=== PATIENT | male | born 1955 | race Caucasian/White ===

== ENCOUNTER → 2021-11-28 | Outpatient (CLI) | payer MEDICARE, OTHER | LOC: M WUC 15:07 | PROVIDERS: ATTEND Student in an Organized Health Care Education/Training Program | DX: S61.205A Unspecified open wound of left ring finger without damage to nail, initial encounter (principal); X58.XXXA Exposure to other specified factors, initial encounter; Y92.9 Unspecified place or not applicable; Y93.9 Activity, unspecified; Y99.9 Unspecified external cause status ==

== ENCOUNTER 2022-04-12 15:27 | Emergency (ER) | payer MEDICARE ==
[~2022-04-12] VITALS: Ht 180.3 cm; Wt 90.1 kg
[2022-04-12] MEDS ORDERED: VENL75CA47 PO (15:48)
[2022-04-12] MEDS ORDERED: MIRT-11 PO (15:48)
[2022-04-12] MEDS ORDERED: ATIV1TAB10 PO (15:48)
[2022-04-12] MEDS ORDERED: NICOTINE 21MG/24HR 1 EA TRANSDERMAL TD ONE (16:30)
[2022-04-12 16:35] LABS: HEMATOCRIT 49.7 % (42.0-52.0); HEMOGLOBIN 17.4 g/dl (13.5-17.5); MEAN CORPUSCULAR HEMOGLOBIN 31.8 pg (27.0-33.0); MEAN CORPUSCULAR VOLUME 90.7 fl (80.0-96.0); PLATELET COUNT, AUTOMATED 263 10^3/uL (150-450); RED BLOOD COUNT 5.48 10^6/uL (4.30-6.10); WHITE BLOOD COUNT 7.9 10^3/uL (4.0-10.0)
[2022-04-12 16:56] LABS: ETHYL ALCOHOL (ETHANOL) 0.003 % (0.000-0.010)
[2022-04-12 16:57] LABS: ACETAMINOPHEN LEVEL < 2.0 UG/ML (10.0-20.0)
[2022-04-12 16:58] LABS: ALBUMIN 4.1 G/DL (3.2-5.2); ALKALINE PHOSPHATASE 48 U/L (46-116); ALT/SGPT 27 U/L (7.0-40); AST/SGOT 20 U/L (<34); BILIRUBIN,DIRECT 0.3 MG/DL (<0.4); BILIRUBIN,TOTAL 0.7 MG/DL (0.3-1.2); BLOOD UREA NITROGEN 13 MG/DL (9-23); CALCIUM LEVEL 9.2 MG/DL (8.3-10.6); CARBON DIOXIDE LEVEL 25 MMOL/L (20-31); CHLORIDE LEVEL 107 MMOL/L (98-107); CREATININE FOR GFR 0.87 MG/DL (0.70-1.30); GLOMERULAR FILTRATION RATE > 60.0 (>49); GLUCOSE, FASTING 85 MG/DL (74-106); POTASSIUM SERUM 3.9 MMOL/L (3.5-5.1); SALICYLATE LEVEL < 3.0 MG/DL (<30); SODIUM LEVEL 138 MMOL/L (136-145); TOTAL PROTEIN 7.5 G/DL (5.7-8.2)
[2022-04-12 17:00] LABS: THYROID STIMULATING HORMONE 1.682 uIU/ML (0.55-4.78)
[2022-04-12 17:07] LABS: AMPHETAMINES LEVEL URINE NEGATIVE (NEGATIVE); BARBITURATES URINE NEGATIVE (NEGATIVE); BENZODIAZEPINES URINE NEGATIVE (NEGATIVE); CANNABINOIDS URINE NEGATIVE (NEGATIVE); COCAINE METABOLITE URINE NEGATIVE (NEGATIVE); METHADONE URINE NEGATIVE (NEGATIVE); OPIATES URINE NEGATIVE (NEGATIVE); PHENCYCLIDINE URINE NEGATIVE (NEGATIVE); RSV AMPLIFICATION NEGATIVE (NEGATIVE)
[2022-04-12] MEDS ORDERED: LORazepam 0.5 MG TAB PO STA (17:28)
[2022-04-12] MEDS ORDERED: HOME MED LIST COMPLETE! XX SCH (18:40)
[2022-04-13] MEDS ORDERED: LORazepam 0.5 MG TAB PO ONE (04:50)
[2022-04-13] MEDS ORDERED: VENLAFAXINE **XR** 75MG CAPSULE PO SCH (09:00)
[2022-04-13 13:43] VITALS: BP 145/87
[2022-04-13] MEDS ORDERED: MIRTAZAPINE 15 MG TAB PO SCH (21:00)
== END 2022-04-13 14:05 ==
LOC: M ED 15:27
DX: R45.851 Suicidal ideations (principal); K21.9 Gastro-esophageal reflux disease without esophagitis; K74.60 Unspecified cirrhosis of liver; F17.200 Nicotine dependence, unspecified, uncomplicated

== ENCOUNTER 2022-04-23 15:01 | Observation (INO) | payer MEDICARE ==
[~2022-04-23] VITALS: Ht 180.3 cm; Wt 85.2 kg
[~2022-04-23 15:01] MED LIST: ATIV1TAB10 PO; MIRT-11 PO; VENL75CA47 PO
[2022-04-23 16:18] LABS: HEMATOCRIT 47.3 % (42.0-52.0); HEMOGLOBIN 16.2 g/dl (13.5-17.5); MEAN CORPUSCULAR HEMOGLOBIN 30.9 pg (27.0-33.0); MEAN CORPUSCULAR HGB CONC 34.2 g/dl (32.0-36.5); MEAN CORPUSCULAR VOLUME 90.3 fl (80.0-96.0); PLATELET COUNT, AUTOMATED 176 10^3/uL (150-450); RED BLOOD COUNT 5.24 10^6/uL (4.30-6.10); WHITE BLOOD COUNT 5.2 10^3/uL (4.0-10.0)
[2022-04-23 16:40] LABS: ETHYL ALCOHOL (ETHANOL) 0.164 % (0.000-0.010)
[2022-04-23 16:42] LABS: ACETAMINOPHEN LEVEL < 2.0 UG/ML (10.0-20.0); ALBUMIN 3.7 G/DL (3.2-5.2); ALKALINE PHOSPHATASE 51 U/L (46-116); ALT/SGPT 103 U/L (7.0-40); AST/SGOT 64 U/L (<34); BILIRUBIN,DIRECT 0.2 MG/DL (<0.4); BILIRUBIN,TOTAL 0.4 MG/DL (0.3-1.2); BLOOD UREA NITROGEN 11 MG/DL (9-23); CALCIUM LEVEL 8.3 MG/DL (8.3-10.6); CARBON DIOXIDE LEVEL 22 MMOL/L (20-31); CHLORIDE LEVEL 103 MMOL/L (98-107); CREATININE FOR GFR 0.76 MG/DL (0.70-1.30); GLOMERULAR FILTRATION RATE > 60.0 (>49); GLUCOSE, FASTING 106 MG/DL (74-106); POTASSIUM SERUM 3.8 MMOL/L (3.5-5.1); SALICYLATE LEVEL < 3.0 MG/DL (<30); SODIUM LEVEL 136 MMOL/L (136-145); TOTAL PROTEIN 6.7 G/DL (5.7-8.2)
[2022-04-23 16:55] LABS: RSV AMPLIFICATION NEGATIVE (NEGATIVE)
[2022-04-24 00:55] LABS: APPEARANCE, URINE MANUAL CLEAR (CLEAR); COLOR, URINE MANUAL YELLOW (YELLOW)
[2022-04-24 00:56] LABS: BILIRUBIN, URINE MANUAL NEGATIVE (NEGATIVE); BLOOD URINE MANUAL NEGATIVE (NEGATIVE); GLUCOSE, URINE (UA) MANUAL NEGATIVE (NEGATIVE); KETONE, URINE MANUAL NEGATIVE (NEGATIVE); LEUKOCYTE ESTERASE, URINE MAN NEGATIVE (NEGATIVE); NITRITE, URINE MANUAL NEGATIVE (NEGATIVE); PROTEIN, URINE MANUAL NEGATIVE (NEGATIVE); SPECIFIC GRAVITY,URINE MANUAL 1.025 (1.002-1.035); UROBILINOGEN, URINE MANUAL NORMAL (NORMAL)
[2022-04-24] MEDS ORDERED: LORazepam 2 MG TAB PO PRN (09:45)
[2022-04-24] MEDS ORDERED: OXAZEPAM 10MG CAP PO ONE (09:45)
[2022-04-24] MEDS ORDERED: THIAMINE 100 MG TAB PO SCH (09:47)
[2022-04-24] MEDS ORDERED: FOLIC ACID 1MG TAB PO SCH (09:48)
[2022-04-24 10:22] LABS: AMPHETAMINES LEVEL URINE NEGATIVE (NEGATIVE); BARBITURATES URINE NEGATIVE (NEGATIVE); BENZODIAZEPINES URINE NEGATIVE (NEGATIVE); CANNABINOIDS URINE NEGATIVE (NEGATIVE); COCAINE METABOLITE URINE NEGATIVE (NEGATIVE); METHADONE URINE NEGATIVE (NEGATIVE); OPIATES URINE NEGATIVE (NEGATIVE); PHENCYCLIDINE URINE NEGATIVE (NEGATIVE)
[2022-04-24] MEDS ORDERED: HOME MED LIST COMPLETE! XX SCH (11:05)
[2022-04-24 15:59] LABS: PROTHROMBIN TIME 13.4 SECONDS (12.5-14.5)
[2022-04-24 16:18] LABS: HEPATITIS B SURFACE ANTIGEN NEGATIVE (NEGATIVE)
[2022-04-24 16:40] LABS: HEPATITIS B CORE ANTIBODY IGM NEGATIVE (NEGATIVE); HEPATITIS C VIRUS ABY INDEX 0.1 INDEX (<0.8)
[2022-04-24 17:43] LABS: MAGNESIUM LEVEL 2.1 MG/DL (1.8-2.4)
[2022-04-24] MEDS ORDERED: RIVAROXABAN 10MG TAB (XARELTO) PO SCH (18:00)
[2022-04-24 21:10] VITALS: BP 170/100
[2022-04-24 22:00] VITALS: BP 134/79
[2022-04-24 23:17] LABS: BILIRUBIN,DIRECT 0.4 MG/DL (<0.4)
[2022-04-24 23:27] LABS: ALBUMIN 3.8 G/DL (3.2-5.2); BILIRUBIN,TOTAL 0.8 MG/DL (0.3-1.2); TOTAL PROTEIN 7.1 G/DL (5.7-8.2)
[2022-04-25 00:15] VITALS: BP 168/105
[2022-04-25 00:45] VITALS: BP 138/78
[2022-04-25 04:21] VITALS: BP 134/93
[2022-04-25 07:19] LABS: HEMATOCRIT 47.3 % (42.0-52.0); HEMOGLOBIN 16.6 g/dl (13.5-17.5); MEAN CORPUSCULAR HEMOGLOBIN 31.2 pg (27.0-33.0); MEAN CORPUSCULAR HGB CONC 35.1 g/dl (32.0-36.5); MEAN CORPUSCULAR VOLUME 88.9 fl (80.0-96.0); PLATELET COUNT, AUTOMATED 237 10^3/uL (150-450); RED BLOOD COUNT 5.32 10^6/uL (4.30-6.10); WHITE BLOOD COUNT 7.3 10^3/uL (4.0-10.0)
[2022-04-25 07:37] LABS: ALBUMIN 3.8 G/DL (3.2-5.2); ALKALINE PHOSPHATASE 58 U/L (46-116); ALT/SGPT 92 U/L (7.0-40); AST/SGOT 53 U/L (<34); BLOOD UREA NITROGEN 15 MG/DL (9-23); CALCIUM LEVEL 9.3 MG/DL (8.3-10.6); CARBON DIOXIDE LEVEL 27 MMOL/L (20-31); CHLORIDE LEVEL 105 MMOL/L (98-107); CREATININE FOR GFR 0.97 MG/DL (0.70-1.30); GLOMERULAR FILTRATION RATE > 60.0 (>49); GLUCOSE, FASTING 96 MG/DL (74-106); POTASSIUM SERUM 4.3 MMOL/L (3.5-5.1); SODIUM LEVEL 139 MMOL/L (136-145); TOTAL PROTEIN 7.2 G/DL (5.7-8.2)
[2022-04-25 09:00] VITALS: BP 129/83
[2022-04-25] MEDS ORDERED: LORazepam 0.5 MG TAB PO PRN (09:00)
[2022-04-25] MEDS ORDERED: MULTIVITAMINS/MINERALS THERAP 1 TAB PO SCH (09:00)
[2022-04-25 12:00] VITALS: BP 148/98
== END 2022-04-25 16:45 ==
LOC: M ED 15:01 → M ED INP 04-24 14:33 → M PCU 04-24 21:04
PROVIDERS: ADMIT Student in an Organized Health Care Education/Training Program; ATTEND Student in an Organized Health Care Education/Training Program
DX: T42.4X2A Poisoning by benzodiazepines, intentional self-harm, initial encounter (principal); T14.91XA Suicide attempt, initial encounter; Y92.009 Unspecified place in unspecified non-institutional (private) residence as the place of occurrence of the external cause; F32.A Depression, unspecified; R74.01 Elevation of levels of liver transaminase levels; K74.60 Unspecified cirrhosis of liver; U07.1 COVID-19; Z79.899 Other long term (current) drug therapy
CPT/HCPCS: 36415; 70450; 71045; 76700; 80048; 80053; 80076; 80143; 80307; 81002; 82077; 83735; 83930; 84443; 85027; 85610; 86705; 86709; 86803; 87340; 87631; 93005; 93041; 93975; 94760; 99285; G0378

== ENCOUNTER 2022-04-25 15:55 | Inpatient (IN) | payer MEDICARE ==
[~2022-04-25] VITALS: Ht 180.3 cm; Wt 88.6 kg
[2022-04-25] MEDS ORDERED: MAALOX 30 ML SUSP *UDC PO PRN (16:00)
[2022-04-25] MEDS ORDERED: MOM 30ML SUSPENSION UDC PO PRN (16:00)
[2022-04-25] MEDS ORDERED: ACETAMINOPHEN TAB 650MG DOSE (2X325MG) PO PRN (16:00)
[2022-04-25 16:55] VITALS: BP 160/90
[2022-04-26 06:13] VITALS: BP 97/63
[2022-04-26] MEDS: NICOTINE 21MG/24HR 1 EA TRANSDERMAL TD SCH (08:55)
[2022-04-26] MEDS: LORazepam 0.5 MG TAB PO PRN (08:55)
[2022-04-26] MEDS ORDERED: FLUBLOK(EGG FREE)(QUAD)INFLUENZA VACC 0.5ML SYRINGE 18YRS & OLDER IM.IMMUN ONE (09:00)
[2022-04-26] MEDS ORDERED: PREVNAR-20 VACCINE 0.5ML SYRINGE IM.IMMUN ONE (09:00)
[2022-04-26] MEDS ORDERED: LORazepam 0.5 MG TAB PO ONE (12:00)
[2022-04-26] MEDS: OXAZEPAM 15MG CAP PO SCH ×2 (13:00→21:39)
[2022-04-26 14:00] VITALS: BP 122/78
[2022-04-26 17:50] VITALS: BP 120/77
[2022-04-26] MEDS: traZODone 50 MG TAB PO PRN (21:39)
[2022-04-27 06:59] VITALS: BP 125/82
[2022-04-27 08:45] VITALS: BP 118/85
[2022-04-27] MEDS ORDERED: PREVNAR-20 VACCINE 0.5ML SYRINGE IM.IMMUN ONE (09:00)
[2022-04-27] MEDS ORDERED: FLUBLOK(EGG FREE)(QUAD)INFLUENZA VACC 0.5ML SYRINGE 18YRS & OLDER IM.IMMUN ONE (09:00)
[2022-04-27] MEDS: OXAZEPAM 15MG CAP PO SCH ×2 (09:56→21:22)
[2022-04-27] MEDS: NICOTINE 21MG/24HR 1 EA TRANSDERMAL TD SCH (09:56)
[2022-04-27] MEDS ORDERED: HOME MED LIST COMPLETE! XX SCH (11:00)
[2022-04-27] MEDS: VENLAFAXINE **XR** 75MG CAPSULE PO SCH (12:18)
[2022-04-27 16:26] VITALS: BP 175/92
[2022-04-27] MEDS: LORazepam 0.5 MG TAB PO PRN (16:35)
[2022-04-27 19:00] VITALS: BP 130/84
[2022-04-27] MEDS: MIRTAZAPINE 15 MG TAB PO SCH (21:22)
[2022-04-27] MEDS: traZODone 50 MG TAB PO PRN (21:22)
[2022-04-27 21:24] VITALS: BP 175/92
[2022-04-28] VITALS: BP 133/79
[2022-04-28 06:57] VITALS: BP 151/96
[2022-04-28 08:00] VITALS: BP 151/96
[2022-04-28] MEDS: OXAZEPAM 15MG CAP PO SCH (08:51)
[2022-04-28] MEDS: VENLAFAXINE **XR** 75MG CAPSULE PO SCH (08:51)
[2022-04-28] MEDS: NICOTINE 21MG/24HR 1 EA TRANSDERMAL TD SCH (08:51)
[2022-04-28] MEDS: BREXPIPRAZOLE 0.5MG TABLET (REXULTI) PO SCH (09:56)
[2022-04-28] MEDS: hydrOXYzine 50 MG TAB PO PRN (14:29)
[2022-04-28 17:47] VITALS: BP 134/83
[2022-04-28] MEDS: traZODone 50 MG TAB PO PRN (19:59)
[2022-04-28] MEDS: MIRTAZAPINE 15 MG TAB PO SCH (19:59)
[2022-04-28] MEDS ORDERED: OXAZEPAM 15MG CAP PO SCH (21:00)
[2022-04-29 06:36] VITALS: BP 129/86
[2022-04-29] MEDS: NICOTINE 21MG/24HR 1 EA TRANSDERMAL TD SCH (07:40)
[2022-04-29] MEDS: BREXPIPRAZOLE 0.5MG TABLET (REXULTI) PO SCH (07:40)
[2022-04-29] MEDS: VENLAFAXINE **XR** 37.5 MG CAPSULE PO SCH (07:41)
[2022-04-29] MEDS: OXAZEPAM 15MG CAP PO SCH ×2 (07:41→19:59)
[2022-04-29] MEDS ORDERED: PILL CUTTER 1 EACH XX PRN (09:20)
[2022-04-29] MEDS: hydrOXYzine 50 MG TAB PO PRN (15:29)
[2022-04-29 18:09] VITALS: BP 135/90
[2022-04-29] MEDS: traZODone 50 MG TAB PO PRN (19:59)
[2022-04-29] MEDS ORDERED: MIRTAZAPINE 15 MG TAB PO SCH (21:00)
[2022-04-30] MEDS: hydrOXYzine 50 MG TAB PO PRN (02:05)
[2022-04-30] MEDS: LORazepam 0.5 MG TAB PO PRN (04:52)
[2022-04-30] MEDS: OXAZEPAM 15MG CAP PO SCH ×2 (07:49→21:05)
[2022-04-30] MEDS: VENLAFAXINE **XR** 37.5 MG CAPSULE PO SCH (07:49)
[2022-04-30] MEDS: NICOTINE 21MG/24HR 1 EA TRANSDERMAL TD SCH (07:49)
[2022-04-30] MEDS: BREXPIPRAZOLE 0.5MG TABLET (REXULTI) PO SCH (07:49)
[2022-04-30 18:02] VITALS: BP 141/84
[2022-04-30] MEDS: traZODone 50 MG TAB PO PRN (21:05)
[2022-04-30] MEDS: MIRTAZAPINE 15 MG TAB PO SCH (21:05)
[2022-05-01 06:25] VITALS: BP 152/93
[2022-05-01] MEDS: BREXPIPRAZOLE 0.5MG TABLET (REXULTI) PO SCH (07:44)
[2022-05-01] MEDS: NICOTINE 21MG/24HR 1 EA TRANSDERMAL TD SCH (07:45)
[2022-05-01] MEDS: VENLAFAXINE **XR** 37.5 MG CAPSULE PO SCH (07:45)
[2022-05-01] MEDS: hydrOXYzine 50 MG TAB PO PRN (07:45)
[2022-05-01] MEDS: GABAPENTIN 100 MG CAP PO SCH ×2 (15:30→20:34)
[2022-05-01 18:08] VITALS: BP 132/89
[2022-05-01] MEDS: MIRTAZAPINE 15 MG TAB PO SCH (20:34)
[2022-05-02] MEDS: hydrOXYzine 50 MG TAB PO PRN (01:20)
[2022-05-02] MEDS: traZODone 50 MG TAB PO PRN ×2 (01:22→20:45)
[2022-05-02 06:51] VITALS: BP 133/83
[2022-05-02] MEDS: VENLAFAXINE **XR** 37.5 MG CAPSULE PO SCH (07:36)
[2022-05-02] MEDS: GABAPENTIN 100 MG CAP PO SCH ×3 (07:36→20:45)
[2022-05-02] MEDS: BREXPIPRAZOLE 0.5MG TABLET (REXULTI) PO SCH (07:36)
[2022-05-02] MEDS: NICOTINE 21MG/24HR 1 EA TRANSDERMAL TD SCH (07:36)
[2022-05-02 17:33] VITALS: BP 140/85
[2022-05-02] MEDS: MIRTAZAPINE 15 MG TAB PO SCH (20:46)
[2022-05-03 06:41] VITALS: BP 114/83
[2022-05-03] MEDS: NICOTINE 21MG/24HR 1 EA TRANSDERMAL TD SCH (08:01)
[2022-05-03] MEDS: VENLAFAXINE **XR** 37.5 MG CAPSULE PO SCH (08:01)
[2022-05-03] MEDS: BREXPIPRAZOLE 0.5MG TABLET (REXULTI) PO SCH (08:01)
[2022-05-03] MEDS: GABAPENTIN 100 MG CAP PO SCH ×3 (08:01→20:50)
[2022-05-03 18:00] VITALS: BP 137/81
[2022-05-03] MEDS: MIRTAZAPINE 15 MG TAB PO SCH (20:50)
[2022-05-03] MEDS: traZODone 50 MG TAB PO PRN (20:50)
[2022-05-04] MEDS: hydrOXYzine 50 MG TAB PO PRN ×2 (02:34→21:22)
[2022-05-04 06:24] VITALS: BP 135/88
[2022-05-04] MEDS: BREXPIPRAZOLE 0.5MG TABLET (REXULTI) PO SCH (07:45)
[2022-05-04] MEDS: GABAPENTIN 100 MG CAP PO SCH ×3 (07:45→21:22)
[2022-05-04] MEDS: VENLAFAXINE **XR** 37.5 MG CAPSULE PO SCH (07:45)
[2022-05-04] MEDS: NICOTINE 21MG/24HR 1 EA TRANSDERMAL TD SCH (07:45)
[2022-05-04 16:07] VITALS: BP 120/77
[2022-05-04] MEDS: traZODone 100 MG TAB PO PRN (21:22)
[2022-05-04] MEDS: MIRTAZAPINE 15 MG TAB PO SCH (21:22)
[2022-05-05 06:31] VITALS: BP 144/90
[2022-05-05] MEDS: VENLAFAXINE **XR** 37.5 MG CAPSULE PO SCH (07:26)
[2022-05-05] MEDS: GABAPENTIN 100 MG CAP PO SCH ×3 (07:26→21:19)
[2022-05-05] MEDS: NICOTINE 21MG/24HR 1 EA TRANSDERMAL TD SCH (07:26)
[2022-05-05] MEDS: BREXPIPRAZOLE 0.5MG TABLET (REXULTI) PO SCH (07:26)
[2022-05-05 16:14] VITALS: BP 143/74
[2022-05-05] MEDS: hydrOXYzine 50 MG TAB PO PRN (21:19)
[2022-05-05] MEDS: MIRTAZAPINE 15 MG TAB PO SCH (21:19)
[2022-05-05] MEDS: traZODone 100 MG TAB PO PRN (21:19)
[2022-05-06 06:22] VITALS: BP 123/88
[2022-05-06] MEDS: BREXPIPRAZOLE 0.5MG TABLET (REXULTI) PO SCH (07:53)
[2022-05-06] MEDS: NICOTINE 21MG/24HR 1 EA TRANSDERMAL TD SCH (07:53)
[2022-05-06] MEDS: VENLAFAXINE **XR** 37.5 MG CAPSULE PO SCH (07:53)
[2022-05-06] MEDS: GABAPENTIN 100 MG CAP PO SCH (07:53)
[2022-05-06] MEDS ORDERED: INFLUENZA QUADRIVALENT PF VACCINE 0.5ML SYRINGE IM.IMMUN ONE (08:00)
[2022-05-06] MEDS ORDERED: MIRT-10 PO (08:27)
[2022-05-06] MEDS ORDERED: VENL37.598 PO (08:27)
[2022-05-06] MEDS ORDERED: GABA-1171 PO (08:27)
[2022-05-06] MEDS ORDERED: HYDR50TA70 PO (08:27)
[2022-05-06] MEDS ORDERED: TRAZ-257 PO (08:27)
[2022-05-06] MEDS ORDERED: REXU1TAB3 PO (08:27)
== END 2022-05-06 12:07 | disposition home or self-care (01) | DRG 885 ==
LOC: M PSY 17:10
PROVIDERS: ADMIT Psychiatry & Neurology Psychiatry; ATTEND Psychiatry & Neurology Psychiatry
DX: F32.89 Other specified depressive episodes (principal); U07.1 COVID-19; F10.10 Alcohol abuse, uncomplicated; R41.0 Disorientation, unspecified; Z79.899 Other long term (current) drug therapy; K74.60 Unspecified cirrhosis of liver

== ENCOUNTER 2022-05-15 16:09 | Emergency (ER) | payer MEDICARE ==
[~2022-05-15] VITALS: Ht 172.7 cm; Wt 84.8 kg
[~2022-05-15 16:09] MED LIST changes: +GABA-1171 PO; +HYDR50TA70 PO; +MIRT-10 PO; +REXU1TAB3 PO; +TRAZ-257 PO; +VENL37.598 PO
[2022-05-15 16:10] VITALS: BP 146/87
[2022-05-15] MEDS ORDERED: CYAN100050 (16:19)
[2022-05-15] MEDS ORDERED: VITA500T9 (16:19)
[2022-05-15] MEDS ORDERED: VITA100093 (16:19)
== END 2022-05-15 19:07 | disposition home or self-care (01) ==
LOC: M ED 16:09
DX: F41.9 Anxiety disorder, unspecified (principal); Z56.89 Other problems related to employment; F32.9 Major depressive disorder, single episode, unspecified; K21.9 Gastro-esophageal reflux disease without esophagitis; F17.200 Nicotine dependence, unspecified, uncomplicated; Z79.899 Other long term (current) drug therapy

== ENCOUNTER → 2025-01-03 | Outpatient (REF) | payer MEDICARE ==
[~2025-01-03] MED LIST changes: +CYAN-1; +VITA100093; +VITA500T9
[2025-01-03 16:26] LABS: APPEARANCE, URINE CLEAR (CLEAR); BACTERIA, URINE AUTO NEGATIVE (NEGATIVE); BILIRUBIN, URINE AUTO NEGATIVE (NEGATIVE); BLOOD, URINE BLOOD NEGATIVE (NEGATIVE); GLUCOSE, URINE (UA) AUTO NEGATIVE (NEGATIVE); KETONE, URINE AUTO NEGATIVE (NEGATIVE); LEUKOCYTE ESTERASE, URINE AUTO NEGATIVE (NEGATIVE); MUCUS, URINE SMALL (NEGATIVE); NITRITE, URINE AUTO NEGATIVE (NEGATIVE); PROTEIN, URINE AUTO NEGATIVE (NEGATIVE); RBC, URINE AUTO 2 /HPF (0-3); SPECIFIC GRAVITY URINE AUTO 1.017 (1.002-1.035); SQUAMOUS EPITHELIAL CELL UR AU 0 /HPF (0-6); UROBILINOGEN, URINE AUTO 0.2 mg/dL (0.0-2.0); WBC, URINE AUTO 2 /HPF (0-3)
[2025-01-03 16:28] LABS: CREATININE, URINE 172.5 MG/DL
[2025-01-03 17:13] LABS: MALB URINE SIEMENS < 3.0 MG/L
[2025-01-03 19:10] LABS: BASO # 0.1 10^3/uL (0.0-0.2); BASO % 1.6 % (0.0-1.0); EOS # 0.1 10^3/uL (0.0-0.5); EOS % 1.6 % (0.0-3.0); LYMPH # 2.0 10^3/uL (1.5-5.0); LYMPH % 28.0 % (24.0-44.0); MONO # 0.7 10^3/uL (0.0-0.8); MONO % 9.5 % (2.0-8.0); NEUTROPHILS # 4.1 10^3/uL (1.5-8.5); NEUTROPHILS % 58.2 % (36.0-66.0); PLATELET COUNT, AUTOMATED 238 10^3/uL (150-450)
[2025-01-03 19:13] LABS: PSA SCREENING 10.16 NG/ML (< 4.00)
[2025-01-03 19:18] LABS: ALT/SGPT 37.0 U/L (7.0-40); AST/SGOT 27.0 U/L (<34); CALCIUM LEVEL 9.2 MG/DL (8.3-10.6); CARBON DIOXIDE LEVEL 30.0 MMOL/L (20-31); CHLORIDE LEVEL 106.0 MMOL/L (98-107); CHOLESTEROL LEVEL 210.0 MG/DL (<200); CHOLESTEROL RISK RATIO 4.22 (<5); CREATININE FOR GFR 1.0 MG/DL (0.70-1.30); GLOMERULAR FILTRATION RATE 80.5 (>42); LDL CHOLESTEROL 141.1 MG/DL (<100); NON-HDL-C 160.3 MG/DL; POTASSIUM SERUM 4.6 MMOL/L (3.5-5.1); SODIUM LEVEL 144.0 MMOL/L (136-145); TRIGLYCERIDES LEVEL 96.0 MG/DL (<150)
[2025-01-03 19:25] LABS: ESTIMATED AVERAGE GLUCOSE 108.0 MG/DL (60-110)
== END ==
LOC: M SFHCLERA 12:14
PROVIDERS: ATTEND Internal Medicine
DX: Z00.01 Encounter for general adult medical examination with abnormal findings (principal); I10 Essential (primary) hypertension; Z12.5 Encounter for screening for malignant neoplasm of prostate; Z79.899 Other long term (current) drug therapy
CPT/HCPCS: 80053; 80061; 81001; 82043; 83036; 84443; 85025; G0103

== ENCOUNTER → 2025-02-02 | Outpatient (REF) | payer MEDICARE | LOC: M SMT PRO 13:08 | PROVIDERS: ATTEND Urology | DX: R97.20 Elevated prostate specific antigen [PSA] (principal); F17.210 Nicotine dependence, cigarettes, uncomplicated; Z79.899 Other long term (current) drug therapy; Z82.49 Family history of ischemic heart disease and other diseases of the circulatory system; Z80.1 Family history of malignant neoplasm of trachea, bronchus and lung ==